=== PATIENT | female | born 1950 | race Caucasian/White ===

== ENCOUNTER 2017-07-16 05:02 | Inpatient (IN) ==
[2017-07-16] MEDS ORDERED: CELECOXIB 200 MG CAPSULE PO SCH (06:00)
[2017-07-16] MEDS ORDERED: oxyCODONE 10 MG TAB.ER.12H PO SCH (06:00)
[2017-07-16] MEDS ORDERED: ceFAZolin 1 GM VIAL IV SCH (06:00)
[2017-07-16] MEDS ORDERED: PREGABALIN 75 MG CAPSULE PO SCH (06:00)
[2017-07-16] MEDS ORDERED: DEXAMETHASONE 10 MG/ML VIAL IV ONE (07:40)
[2017-07-16] MEDS ORDERED: LIDOCAINE HCL/PF 100 MG/5 ML SYRINGE IV ONE (07:40)
[2017-07-16] MEDS ORDERED: ePHEDrine 50 MG/ML AMPUL IV ONE (07:40)
[2017-07-16] MEDS ORDERED: MIDAZOLAM 2 MG/2 ML VIAL IV ONE (07:40)
[2017-07-16] MEDS ORDERED: TRANEXAMIC ACID 1,000 MG/10 ML VIAL IV ONE ×2 (07:40→09:11)
[2017-07-16] MEDS ORDERED: PROPOFOL 200 MG/20 ML VIAL IV ONE (07:40)
[2017-07-16] MEDS ORDERED: ONDANSETRON 4 MG/2 ML VIAL IV ONE (07:40)
[2017-07-16] MEDS ORDERED: HEPARIN 20,000 UNIT/ML VIAL IR ONE (08:20)
[2017-07-16] MEDS ORDERED: HYDROmorphone 2 MG/ML SYRINGE IV PRN ×2 (09:02→09:11)
[2017-07-16] MEDS ORDERED: ONDANSETRON 4 MG/2 ML VIAL IV PRN ×2 (09:02→09:11)
[2017-07-16] MEDS ORDERED: MEPERIDINE 25 MG/ML SYRINGE IV PRN (09:02)
[2017-07-16] MEDS ORDERED: LACTATED RINGERS 250 ML IV PRN (09:02)
[2017-07-16] MEDS ORDERED: fentaNYL 100 MCG/2 ML VIAL IV PRN (09:02)
[2017-07-16] MEDS ORDERED: METHOCARBAMOL 1,000 MG/10 ML VIAL IV PRN (09:02)
[2017-07-16] MEDS ORDERED: ACETAMINOPHEN 1,000 MG/100 ML BOTTLE IV ONE (09:02)
[2017-07-16] MEDS ORDERED: diphenhydrAMINE 50 MG/ML VIAL IV PRN (09:02)
[2017-07-16] MEDS ORDERED: FLUMAZENIL 0.1 MG/ML ML IV PRN (09:02)
[2017-07-16] MEDS ORDERED: IPRATROPIUM/ALBUTEROL 3 ML AMPUL.NEB NEB PRN (09:02)
[2017-07-16] MEDS ORDERED: NALOXONE HCL 0.4 MG/ML VIAL IV PRN (09:02)
[2017-07-16] MEDS ORDERED: BENZOCAINE/MENTHOL 1 LOZENGE PO PRN ×2 (09:02→09:11)
--- NOTE | 2017-07-16 09:07 | Brief Operative Note ---
Date of procedure: 07/16/17 Pre-op diagnosis: Right hip severe DJD Post-op diagnosis: same Procedure: Right total hip arthroplasty Grafts/Implants: Yes (Depuy Trilock 4 HO stem, +1.5 36 delta head, 54 cup, neutral altrx liner) Anesthesia: spinal, GLMA Findings: arthritis Complications: none Surgeon: Jorge Luis Egan Licensed Insurance Agent: Musa Ellison Estimated blood loss (cc): 150 Specimens Removed/Pathology: none sent Condition: stable Disposition: PACU
[2017-07-16] MEDS ORDERED: MAGNESIUM HYDROXIDE 30 ML ORAL.SUSP PO PRN (09:11)
[2017-07-16] MEDS ORDERED: oxyCODONE/APAP 5/325MG TABLET PO PRN (09:11)
[2017-07-16] MEDS ORDERED: BISACODYL 10 MG SUPP.RECT PR PRN (09:11)
[2017-07-16] MEDS ORDERED: POLYETHYLENE GLYCOL 3350 17 GM PACKET PO PRN (09:11)
[2017-07-16] MEDS ORDERED: FLEETS ADULT ENEMA PR PRN (09:11)
[2017-07-16] MEDS ORDERED: LACTATED RINGERS 1,000 ML IV SCH (09:15)
--- NOTE | 2017-07-16 10:41 | XRay Report ---
HISTORY: Reason for Exam:Post-op Total Hip FINDINGS: There is a well-positioned right total hip prosthesis. No fracture is present and there are no abnormal soft tissue calcifications around the joint. Patient has a left hip prosthesis which is unchanged in alignment since 12/14/14. IMPRESSION: Well-positioned right hip prosthesis Interpreted and Authenticated by: Robin Zee 07/16/17
--- NOTE | 2017-07-16 10:48 | Operative Note ---
DATE OF OPERATION: 07/16/2017 PREOPERATIVE DIAGNOSIS: Right hip severe osteoarthritis. POSTOPERATIVE DIAGNOSIS: Right hip severe osteoarthritis. PROCEDURE PERFORMED: Right anterior total hip arthroplasty with a DePuy Tri-Lock size 4 high offset femoral stem; a +1.5, 36 mm delta ceramic head ball; a 54 Sunshine cup with a neutral AltrX liner. SURGEON: Jorge Luis Egan MD. STEREOTYPER: Zenon Ellison PA-C. ANESTHESIA: Spinal plus general. DRAINS: None. SPECIMENS: Femoral head which was discarded. BLOOD LOSS: 150 mL. COMPLICATIONS: None. POSTOPERATIVE CONDITION: Stable. INDICATIONS FOR SURGERY: This is a 66-year-old female who has had progressive worsening right hip pain and radiographs showing severe [id number] osteoarthritis. She had had a prior left total hip arthroplasty done by me. FINDINGS AT SURGERY: As above. Post-fixation showed good component position with symmetrical leg length and offset. PROCEDURE IN DETAIL: The patient had been seen preoperatively. Informed consent had been obtained after discussion of risks and benefits of surgery. Risks including, but not limited to, bleeding, possibly requiring transfusion; infection, possibly requiring implant removal and prolonged IV antibiotics; injury to nerves, blood vessels, and other surrounding structures; anesthetic risks; incomplete or no resolution of symptoms; dislocation; leg length discrepancy; DVT and pulmonary embolus risks; and the possibility of needing further revision surgery. She understood these risks and wished to proceed. Correct operative site was marked, and the patient was taken to the operating room after spinal anesthesia was given. LMA general was performed, and then the patient was carefully positioned on the fracture table, and the right hip and groin were carefully prepped and draped in normal sterile fashion. Time out was performed verifying patient name, operative site, and plan. Standard anterior approach incision was made with a scalpel through skin and subcutaneous tissue, and then blunt dissection taken down onto the tensor fascia, and we undermined circumferentially. There was a small branch of the lateral femoral cutaneous nerve crossing the incision which we carefully retracted out of the way. Irrisept was irrigated and a ring retractor was placed. Tensor fascia was incised in line with the muscle fibers, and then careful blunt dissection was taken medial to the muscle belly. Blunt cobra retractors were placed on the superior and inferior neck and then circumflex vessels were coagulated and cut. We performed an anterior capsulectomy and then corkscrew was placed in the femoral head. Osteotome was used under fluoro to identify our approximate neck cut trajectory and then oscillating saw was used to perform our osteotomy. Femoral head was removed. Acetabulum was exposed. Soft tissue was removed from the acetabulum. A reamer was used to directly medialize, and we increased reamer size up to a 53 before we had rim ream. A 54 no-hole Sunshine cup was opened. We irrigated the acetabulum with Irrisept. After a minute we pulse lavaged copiously with saline, and then the cup was impacted at approximately 40 degrees of inclination and 25 degrees of anteversion. We placed a center hole cover. Osteophytes were removed from the anterior and inferior acetabulum and then the center hole cover was placed, and a neutral AltrX liner was carefully aligned and impacted. The tabs were carefully verified to be fully seated. We then externally rotated the leg and completed our capsule release around the medial and posterior neck, and then the leg was extended and adducted with the traction removed. The proximal femur was exposed. A box osteotome was used to gain canal entry and then an awl was used to identify canal trajectory. Rongeur and rasp were used to lateralize. We then broached up to a size 3 high offset, which is what she had on her opposite side. We trialed a +1.5 head ball. The hip was reduced. AP pelvis was taken to verify neutral rotation, and then an AP of the nonoperative and operative hips were taken and overlaid. Leg length and offset appeared symmetrical. However, the stem looked a little undersized. We dislocated and re-exposed the proximal femur. I was able to impact the 3 down below our neck cut, so I went up to a size 4 broach. This was able to seat right at our neck cut, so we opened a 4 high offset stem. The trial was removed and Irrisept irrigated down the femoral canal. After a minute we pulse lavaged copiously with saline and then the 4 high offset Tri-Lock stem was impacted. This seated right at our neck cut so a +1.5 head ball was opened. The stem was carefully cleaned and dried and then head ball was briskly impacted. The hip was reduced and final fluoro images were taken. We filled the joint with Irrisept one more time. After waiting a minute, pulse lavaged copiously with saline. The tensor fascia was closed with two #1 Vicryl running stitches, one running proximal and one running distal. Again, careful attention used to not involve the cutaneous nerve branch. We then did a final Irrisept irrigation. After a minute we pulse lavaged, and then 2-0 Monocryl for subcutaneous and ele for skin. Xeroform and sterile dressing was applied, and then patient was transferred to a gurney, extubated, and transferred to recovery in stable condition. [email or web address]:mike Job ID: [id number] Doc ID: [id number] Jorge Luis Egan MD
[2017-07-16] MEDS: 0.9 % SODIUM CHLORIDE 1,000 ML IV SCH ×3 (13:17→23:25)
[2017-07-16] MEDS: 0.9 % SODIUM CHLORIDE 10 ML SYRINGE IV SCH ×2 (13:17→23:26)
[2017-07-16] MEDS: ceFAZolin 1 GM VIAL IV SCH ×2 (15:06→23:24)
[2017-07-16] MEDS: KETOROLAC 30 MG/ML VIAL IV PRN ×2 (15:14→21:27)
--- NOTE | 2017-07-16 16:40 | Discharge Summary ---
Providers - Providers Patient information: Note initiated : 07/16/17 at 4:36 pm Service Date, if different from initiated Date: [] Patient: Naomi Hsu 66 y/o F admitted on 07/16/17 for Right Anterior Total Hip Arthroplasty . Chief Complaint: [] Discharge date: 07/17/17 Hospitalization Hospital course: Pt was admitted for a R total hip arthroplasty. She underwent the procedure the day of admission. SHe was transferred to the floor for IV pain meds, IV abx, and PT. SHe was dischraged to home with appropriate pain meds and out-patient PT orders. She will f/u at [facility] in 10-14 days. Discharge diagnosis: R hip Osetoarthrosis Exam - Exam Clean and dry: Yes Weight bearing status: as tolerated Ortho Discharge - [place] - Patient Instructions Diet: Regular Diet Activity: activity as tolerated Total Hip Protocol: Follow activity instructions as provided by Physical Therapy. Dressing Care: May shower in 2 days Patient Education: Minimally Invasive Total Hip Replacement (DC) Additional Instructions: Discharge Instructions: Do the exercises at home that physical therapy gave you. You are scheduled to start physical therapy at [facility] ([phone]) on Jul. Take your prescription, photo ID, insurance cards, and current medication list with you to your first physical therapy appointment. Take your prescription to [facility] any medication or equipment (such as walker, crutches, toilet riser or C.P.M.) Wear comfortable clothing for your physical therapy. Weight bearing as tolerated. You have the Aquacel Ag dressing, leave in place for 7 days then remove. If dressing becomes soiled (turns black), remove and use gauze 4x4 dressing and silvasorb ointment and change daily. Keep incision clean and dry. You may start showering on post op day #2. To avoid constipation while taking any narcotic pain medication, take an over the counter stool softener/laxative. Use ice packs as directed, on for 20 minutes at a time throughout the day. This and elevation will help with pain and swelling. Call your physician for fevers above 100.5 or pain not controlled by medication. Your prescriptions are with your discharge information. Some medications were electronically transmitted to your pharmacy of choice. - Follow Up Plan Follow Up Appointments: Jorge Luis Egan MD [Physician] - 07/31/17 1:10 pm Musa Ellison PA-C [Physician [facility]] - Disposition: Home, Self-Care Prognosis: Good Rehab Potential: Good Overall status at discharge: patient is progressing back to baseline - Orders For Discharge Prescriptions: Aspirin [Ecotrin] 325 mg PO BID #60 tab.ec HYDROcodone/APAP 5/325MG [Elwin 5/325Mg] 1 - 2 tab PO Q4HP PRN #60 tab PRN Reason: Pain Walker [Ultra-Light Rollator] 1 each MC PRN PRN #1 each PRN Reason: Pain Additional Discharge Orders: Physical Therapy at Discharge - [place] Location: Determined By Patient Pending Studies Resuscitation Status Full Code Diet Regular Diet Start FriJul 16 Lunch Cefazolin Sodium (Ancef) 2 gm IV PREOP FRANCK Stop: 07/16/17 17:00 Last Admin: 07/16/17 07:20 Dose: 2 gm Cefazolin Sodium (Ancef) 1 gm IV Q8H FRANCK Stop: 07/16/17 23:31 Last Admin: 07/16/17 15:06 Dose: 1 gm Celecoxib (Celebrex) 200 mg PO PREOP FRANCK Stop: 07/16/17 17:00 Last Admin: 07/16/17 06:45 Dose: 200 mg Sodium Chloride (Sodium Chloride 0.9%) 1,000 mls @ 125 mls/hr IV .Q8H FRANCK Last Admin: 07/16/17 16:26 Dose: Not Given Admin: 07/16/17 13:17 Dose: 125 mls/hr Ketorolac Tromethamine (Toradol) 30 mg IV Q6HP PRN PRN Reason: Pain Stop: 07/18/17 09:14 Last Admin: 07/16/17 15:14 Dose: 30 mg Oxycodone HCl (Oxycontin) 10 mg PO PREOP FRANCK Stop: 07/16/17 17:00 Last Admin: 07/16/17 06:45 Dose: 10 mg Pregabalin (Lyrica) 75 mg PO PREOP FRANCK Stop: 07/16/17 17:00 Last Admin: 07/16/17 06:45 Dose: 75 mg Sodium Chloride (Saline Flush) 10 ml IV Q8 FRANCK Last Admin: 07/16/17 13:17 Dose: Not Given Shift Summary 07/16/17 16:26 Shift Summary by Vivien Almonte Vitals stable on room air. Fair appetite. Up to bathroom with CGA and walker. Pt complaining of being dizzy even with head of bed flat. Dizziness increases slightly with ambulation. Dressing clean dry and intact to right hip. Has been straight cathed x 2 with last one at 1400 and pt has yet to void. Toradol given with good results. Alert and orientated. Initialized on 07/16/17 16:26 - END OF NOTE
[2017-07-16] MEDS ORDERED: SENNOSIDES 1 TABLET PO SCH (21:00)
[2017-07-16] MEDS: ASPIRIN 325 MG ENTERIC COATED TABLET PO SCH (21:26)
[2017-07-16] MEDS: DOCUSATE SODIUM 100 MG CAPSULE PO SCH (21:26)
[2017-07-17] MEDS: 0.9 % SODIUM CHLORIDE 10 ML SYRINGE IV SCH (05:30)
[2017-07-17] MEDS: KETOROLAC 30 MG/ML VIAL IV PRN (07:37)
--- NOTE | 2017-07-17 08:31 | Orthopedic Progress Note ---
Orthopedics - Auxillary Note - Subjective Patient Information: Note initiated : 07/17/17 at 8:30 am Service Date, if different from initiated Date: [] Patient: Naomi Hsu 66 y/o F admitted on 07/16/17 for Right Anterior Total Hip Arthroplasty . Chief Complaint: Mild pain bandages c/d/i nvi-distal Vital Signs Temp Pulse Pulse Resp BP BP Pulse Ox 07/17/17 08:02 69 99 07/17/17 07:28 97.5 F 69 14 108/49 96 07/17/17 04:00 98.5 F 73 16 110/68 98 07/17/17 00:00 97.7 F 73 18 97/55 97 07/16/17 20:00 97.4 F 75 18 115/62 97 07/16/17 15:22 97.6 F 16 126/70 100 07/16/17 13:15 97.2 F 65 12 132/71 100 07/16/17 12:15 64 120/75 99 07/16/17 11:45 12 137/82 99 07/16/17 11:16 59 L 12 117/74 98 07/16/17 11:00 60 133/94 98 07/16/17 10:45 59 L 123/68 96 07/16/17 10:30 95.9 F L 61 8 L 121/74 99 07/16/17 10:23 96.8 F L 73 16 122/66 98 07/16/17 10:15 67 16 121/66 97 07/16/17 10:00 73 16 124/68 98 07/16/17 09:45 78 16 123/71 97 07/16/17 09:40 96.3 F L 79 16 124/65 100 07/16/17 09:35 79 14 126/65 100 07/16/17 09:30 73 14 127/68 100 07/16/17 09:23 96.1 F L 78 14 126/71 100 Intake and Output 07/16/17 07/17/17 07/17/17 21:59 05:59 13:59 Intake Total 1205 / 1205 400 / 400 Output Total 700 / 700 2450 / 2450 300 / 300 Balance 505 / 505 -2050 / -2050 -300 / -300 Intake: IV 965 / 965 Sodium Chloride 0.9% 1,000 ml @ 965 / 965 125 mls/hr IV .Q8H [facility], [facility]–1983 Rx#: [id number] Oral 240 / 240 400 / 400 Output: Urine Catheter Amount 700 / 700 2450 / 2450 Void Amount 300 / 300 Other: Meal Lunch Percent of Meal Consumed 50% Weight 159 lb 8 oz Laboratory Results - last 24 hr 07/17/17 06:00 Hgb 11.5 L Hct 33.7 L s/p R total hip arthroplasty-stable Mobilize with PT Discharge to home today
[2017-07-17] MEDS: ASPIRIN 325 MG ENTERIC COATED TABLET PO SCH (08:44)
[2017-07-17] MEDS: DOCUSATE SODIUM 100 MG CAPSULE PO SCH (08:44)
[2017-07-17] MEDS ORDERED: VITAMIN D3 1,000 UNIT TABLET PO SCH (09:00)
== END 2017-07-17 11:10 | disposition home or self-care (01) | DRG 470 ==
LOC: MEDSUR 05:02
PROVIDERS: ADMIT Orthopaedic Surgery; ATTEND Orthopaedic Surgery